=== PATIENT | female | born 1980 | race Caucasian/White ===

== ENCOUNTER 2017-11-17 15:46 | Emergency (ER) | END 2017-11-17 17:51 | disposition home or self-care (01) ==

== ENCOUNTER 2018-04-21 11:41 | Emergency (ER) | payer OTHER ==
[~2018-04-21] VITALS: Ht 167.6 cm; Wt 95.9 kg
[~2018-04-21 11:41] MED LIST: ALBU18HF INHALATION; DENIES; PRED20TA PO
[2018-04-21 11:54] VITALS: Ht 167.6 cm; Wt 95.9 kg
--- NOTE | 2018-04-21 15:35 | ERD ---
ER Documentation Chief Complaint Chief Complaint Complains of rash to face x 2 days HPI 37-year-old female, previously healthy, presents the emergency department, complaining of acute onset of left facial vesicular rash, associated with a burning sensation and deep pain. The patient reports history of chic kenpox in infancy. She denies fevers, no shortness of breath, no cough. No medications taken at this time for pain. ROS All systems reviewed and are negative except as per history of present illness. Medications Home Meds Active Scripts Hydrocodone/Acetaminophen ([place] 5-325 Tablet) 1 Each Tablet, 1 TAB PO QHS PRN for PAIN, #7 TAB Prov:JESUS TALBERT MD 04/21/18 Prednisone* (Prednisone*) 20 Mg Tab, 40 MG PO DAILY for 4 Days, TAB Prov:JESUS TALBERT MD 04/21/18 Valacyclovir HCl (Valtrex) 1,000 Mg Tablet, 1000 MG PO TID for 7 Days, TAB Prov:JESUS TALBERT MD 04/21/18 Albuterol Sulfate* (Ventolin HFA*) 18 Gm Hfa.aer.ad, 2 PUFF INHALATION Q4H, #1 INHALER Prov:RAY DELUCA MD 11/17/17 Prednisone* (Prednisone*) 20 Mg Tab, 40 MG PO DAILY for 5 Days, TAB Prov:RAY DELUCA MD 11/17/17 Reported Medications [Denies] No Conflict Check 12/03/10 Allergies Allergies: Coded Allergies: No Known Drug Allergy (Verified Allergy, Unknown, 11/17/17) PMhx/Soc History of Surgery: Yes (TUBAL LIGATION) Anesthesia Reaction: No Hx Neurological Disorder: No Hx Respiratory Disorders: Yes (ASTHMA) Hx Cardiac Disorders: No Hx Psychiatric Problems: No Hx Miscellaneous Medical Probl: No Hx Alcohol Use: No Hx Substance Use: No Hx Tobacco Use: No Smoking Status: Never smoker FmHx Family History: No diabetes, No coronary disease Physical Exam Vitals Vital Signs Date Temp Pulse Resp B/P (MAP) Pulse Ox O2 O2 Flow FiO2 Time Delivery Rate 04/21/18 97.9 65 16 130/76 97 Room Air 15:51 (94) 04/21/18 98.0 87 20 131/76 97 11:54 (94) Physical Exam Const: No acute distress Head: Atraumatic Eyes: Normal Conjunctiva ENT: Normal External Ears, Nose and Mouth. Neck: Full range of motion. No meningismus. Resp: Clear to auscultation bilaterally Cardio: Regular rate and rhythm, no murmurs Abd: Soft, non tender, non distended. Normal bowel sounds Skin: Left facial erythematous, vesicular rash, in dermatomal distribution. No intraocular lesions no lesions in the auditory canal. Back: No midline or flank tenderness Ext: No cyanosis, or edema Neur: Awake and alert Psych: Normal Mood and Affect Procedures/MDM Differential diagnosis include but not limited to: Contact dermatitis, HSV infection, cellulitis, insect bite, scabies. impetigo. Physical examination and clinical presentation consistent most likely with ortiz gles. During the ED course the patient remained stable, no new complaints. Results and clinical impression discussed with patient who agrees with management. The patient is stable to be treated outpatient and will be discharged home with a Rx for valacyclovir, some side effects of prescribed medications (headache, rash, nausea, vomiting, diarrhea, drowsiness, habituation, bleeding, hypertension, interactions with other medications) were reviewed. The patient was instructed to follow up with the primary care provider in the next 48h. If symptoms persist, worsen or new symptoms develop, then patient should return to the ED immediately. Instructions explained and given directly by me to the patient with acknowledgment and demonstrated understanding. Disclaimer: Inadvertent spelling and grammatical errors are likely due to EHR/dictation software use and do not reflect on the overall quality of patient care. Also, please note that the electronic time recorded on this note does not necessarily reflect the actual time of the patient encounter. Departure Diagnosis: Primary Impression: Shingles Condition: Stable Additional Instructions: Muchas beatris por [facility] para amaya servicio. Esperamos que en amaya visita a la esperanza de emergencia amaya problema medico haya sido solucionado y que se sienta mucho mejor. Para estar seguros que amaya mejoria sigue en proceso, le pedimos el favor de hacer corby horacio de seguimiento medico con amaya doctor primario en los proximos 2-4 dow. Lleve con usted estos documentos y las medicinas recetadas. Si lanre sintomas empeoran, NO SE ESPERE, por favor regrese a esperanza de emergencia INMEDIATAMENTE. En angelica que usted no tenga un mdico de atencin primaria: Llame al mdico o clnica comunitaria de referencia que aparece abajo shereen las horas de consultorio para hacer corby horacio para que le vean. CLINICAS: [facility] [phone] [facility] [phone] [facility] [phone] [facility] [phone] [facility] [phone] [address] [facility]. [phone] JESUS MURILLO MD Apr 21, 2018 15:35
[2018-04-21] MEDS ORDERED: HYDR-4011 PO (15:37)
[2018-04-21] MEDS ORDERED: PRED20TA PO (15:37)
[2018-04-21] MEDS ORDERED: VALA10004 PO (15:37)
[2018-04-21 15:51] VITALS: BP 130/76; PULSE 65; RESP 16
== END 2018-04-21 15:52 | disposition home or self-care (01) ==
LOC: FTE 11:41
DX: B02.9 Zoster without complications (principal); J45.909 Unspecified asthma, uncomplicated
CPT/HCPCS: 99283

== ENCOUNTER 2018-06-02 09:12 | Emergency (ER) | payer OTHER ==
[~2018-06-02] VITALS: Ht 152.4 cm; Wt 91.9 kg
[~2018-06-02 09:12] MED LIST changes: +HYDR-4011 PO; +VALA10004 PO
[2018-06-02 09:13] VITALS: BP 127/70; PULSE 80; RESP 18; Ht 152.4 cm; Wt 91.9 kg
[2018-06-02] MEDS ORDERED: KETOROLAC 60 MG INJ IM STA (09:53)
[2018-06-02] MEDS ORDERED: IBUP-1542 PO (10:26)
[2018-06-02] MEDS ORDERED: PRED20TA PO (10:28)
--- NOTE | 2018-06-02 11:05 | ERD ---
ER Documentation Chief Complaint Chief Complaint C/O RIGHT ARM PAIN FROM ELBOW TO FINGERS FOR FEW MONTHS, WORSE NOW HPI History of Present Illness: 37-year-old female with no past medical history coming in today with complaint of right arm pain. Patient reports pain present for 2 to 3 months. Patient denies injury or trauma. Patient describes pain as burning with numbness feeling that is more present at night. Patient reports pain is worsened in the past 2 weeks. Patient denies any type of cervical or back injuries. At home pharmacological/nonpharmacological treatment for symptoms: Denies Denies social concerns; Denies recent foreign travel ROS All systems reviewed and are negative except as per history of present illness. Medications Home Meds Active Scripts Prednisone* (Prednisone*) 20 Mg Tab, 40 MG PO WITH FIRST MEAL DAY for arm pain for 4 Days, TAB Prov:MONIQUE GAUTHIER NP 06/02/18 Ibuprofen* (Motrin*) 600 Mg Tab, 600 MG PO Q6H PRN for PAIN AND OR ELEVATED TEMP, #30 TAB Prov:MONIQUE GAUTHIER NP 06/02/18 Hydrocodone/Acetaminophen ([place] 5-325 Tablet) 1 Each Tablet, 1 TAB PO QHS PRN for PAIN, #7 TAB Prov:JESUS TALBERT MD 04/21/18 Prednisone* (Prednisone*) 20 Mg Tab, 40 MG PO DAILY for 4 Days, TAB Prov:JESUS TALBERT MD 04/21/18 valACYclovir HCl (Valtrex) 1,000 Mg Tablet, 1000 MG PO TID for 7 Days, TAB Prov:EJSUS TALBERT MD 04/21/18 Albuterol Sulfate* (Ventolin HFA*) 18 Gm Hfa.aer.ad, 2 PUFF INHALATION Q4H, #1 INHALER Prov:RAY DELUCA MD 11/17/17 Prednisone* (Prednisone*) 20 Mg Tab, 40 MG PO DAILY for 5 Days, TAB Prov:RAY DELUCA MD 11/17/17 Reported Medications [Denies] No Conflict Check 12/03/10 Allergies Allergies: Coded Allergies: No Known Drug Allergy (Verified Allergy, Unknown, 11/17/17) PMhx/Soc History of Surgery: Yes (TUBAL LIGATION) Anesthesia Reaction: No Hx Neurological Disorder: No Hx Respiratory Disorders: Yes (ASTHMA) Hx Cardiac Disorders: No Hx Psychiatric Problems: No Hx Miscellaneous Medical Probl: Yes (Shingles) Hx Alcohol Use: No Hx Substance Use: No Hx Tobacco Use: No Smoking Status: Never smoker FmHx Family History: coronary disease; No diabetes Physical Exam Vitals Vital Signs Date Temp Pulse Resp B/P (MAP) Pulse Ox O2 O2 Flow FiO2 Time Delivery Rate 06/02/18 98.0 80 18 127/70 97 09:13 (89) Physical Exam Const: No acute distress Head: Atraumatic Eyes: Normal Conjunctiva ENT: Normal External Ears, Nose and Mouth. Neck: Full range of motion. No meningismus. Resp: Clear to auscultation bilaterally Cardio: Regular rate and rhythm, no murmurs Abd: Soft, non tender, non distended. Normal bowel sounds Skin: No petechiae or rashes Back: No midline or flank tenderness Ext: No cyanosis, or edema. 2+ radial pulse. Brachial pulses palpated. Neurovascularly intact distally. Cap refill 2. Neur: Awake and alert Psych: Normal Mood and Affect Results 24 hrs Laboratory Tests Test 06/02/18 10:07 POC Beta HCG, Qualitative NEGATIVE Current Medications Medications Dose Sig/Kendra Start Time Status Last (Trade) Ordered Route PRN Stop Time Admin Dose Reason Admin Ketorolac 60 mg ONCE STAT 06/02/18 DC 06/02/18 Tromethamine IM 09:53 10:16 (Toradol) 06/02/18 09:55 Procedures/MDM ED course includes a thorough examination and history. Medications: ketorolac Imaging: -- Labs: Urine Low suspicion for life-threatening medical emergency. Low suspicion for neurovascular medical emergency that compromises limb. Otherwise healthy patient presenting with constellation of symptoms likely representing right arm pain possibly nerve impingement as characterized by history, physical exam findings, lab findings. Urine negative No respiratory distress, otherwise relatively well appearing and nontoxic. Patient educated on diagnoses, prescriptions, follow-up care, return precautions. Strict return precautions given for worsening condition; questions answered discharge. Disposition for discharge with followup in 2 days with PCP/clinic. Departure Diagnosis: Primary Impression: Pain of right arm Condition: Stable Patient Instructions: Pain, Uncertain Cause (Acute) Referrals: COMMUNITY CLINICS YOU HAVE RECEIVED A MEDICAL SCREENING EXAM AND THE RESULTS INDICATE THAT YOU DO NOT HAVE A CONDITION THAT REQUIRES URGENT TREATMENT IN THE EMERGENCY DEPARTMENT. FURTHER EVALUATION AND TREATMENT OF YOUR CONDITION CAN WAIT UNTIL YOU ARE SEEN IN YOUR DOCTORS OFFICE WITHIN THE NEXT 1-2 DAYS. IT IS YOUR RESPONSIBILITY TO MAKE AN APPOINTMENT FOR FOLOW-UP CARE. IF YOU HAVE A PRIMARY DOCTOR --you should call your primary doctor and schedule an appointment IF YOU DO NOT HAVE A PRIMARY DOCTOR YOU CAN CALL OUR PHYSICIAN REFERRAL HOTLINE AT IF YOU CAN NOT AFFORD TO SEE A PHYSICIAN YOU CAN CHOSE FROM THE FOLLOWING [facility] [address] [facility] [address] [facility]. [facility] [address] [facility] [facility] [address] [facility] [address] [facility]. [facility] [address] [facility]. [facility] YOU HAVE RECEIVED A MEDICAL SCREENING EXAM AND THE RESULTS INDICATE THAT YOU DO NOT HAVE A CONDITION THAT REQUIRES URGENT TREATMENT IN THE EMERGENCY DEPARTMENT. FURTHER EVALUATION AND TREATMENT OF YOUR CONDITION CAN WAIT UNTIL YOU ARE SEEN IN YOUR DOCTORS OFFICE WITHIN THE NEXT 1-2 DAYS. IT IS YOUR RESPONSIBILITY TO MA KE AN APPOINTMENT FOR FOLOW-UP CARE. IF YOU HAVE A PRIMARY DOCTOR --you should call your primary doctor and schedule and appointment IF YOU DO NOT HAVE A PRIMARY DOCTOR YOU CAN CALL OUR PHYSICIAN REFERRAL HOTLINE AT . IF YOU CAN NOT AFFORD TO SEE A PHYSICIAN YOU CAN CHOSE FROM THE FOLLOWING [facility] INSTITUTIONS: [facility] [address] [place] [address] [facility] [address] [place] [address] [facility] [address] [place] [address] Additional Instructions: Thank you very much for allowing us to participate in your care. Your health and safety is our top priority at [facility]. It is important to read all discharge instructions and education provided in your discharge packet. Call your primary care doctor TOMORROW for an appointment during the next 2-4 days and bring all the information and medications prescribed. It is very important for you to follow with your primary care doctor for further evaluation and reassessment of condition. Have prescriptions filled and follow precisely the directions on the label. -Prednisone is a steroid, which decreases inflammation; uses medication every morning with breakfast to decrease inflammation associated with your arm and possible nerve impingement flareup -Ibuprofen is a anti-inflammatory/pain medication; take this medication daily as prescribed for the next week to help with swelling/inflammation/pain. If the symptoms get worse and your provider is unavailable, return to the Emergency Department immediately. MONIQUE GAUTHIER NP Jun 02, 2018 11:05
== END 2018-06-02 11:04 | disposition home or self-care (01) ==
LOC: FTE 09:12
DX: M79.601 Pain in right arm (principal); J45.909 Unspecified asthma, uncomplicated
CPT/HCPCS: 81025; 96372; J1885; Z7502

== ENCOUNTER 2018-08-19 18:17 | Emergency (ER) | payer OTHER ==
[~2018-08-19] VITALS: Ht 157.5 cm; Wt 93.5 kg
[~2018-08-19 18:17] MED LIST changes: +IBUP-1542 PO
[2018-08-19 18:32] VITALS: Ht 157.5 cm; Wt 93.5 kg
[2018-08-19] MEDS ORDERED: HYDROCODONE/APAP (5/325) TAB PO ONE (21:30)
[2018-08-19] MEDS ORDERED: IBUPROFEN 600 MG TAB PO ONE (21:30)
[2018-08-19] MEDS ORDERED: IBUP800T48 PO (22:03)
[2018-08-19] MEDS ORDERED: TRAM50TA2 PO (22:03)
--- NOTE | 2018-08-19 22:05 | ERD ---
ER Documentation Chief Complaint Chief Complaint BACK PAIN/INJURY S/P FALL. NO KO OR HEAD TRAUMA. HPI This 38-year-old female slipped down 8 stairs on her buttocks 8 days ago. She has persistent pain in her coccyx. She also has mild pain in her right rib. She denies head injury, fever, loss of consciousness, neck pain, weakness or deficits patient has any redness of the area of pain. ROS All systems reviewed and are negative except as per history of present illness. Medications Home Meds Active Scripts Tramadol HCl (Tramadol HCl) 50 Mg Tablet, 50 MG PO Q4 PRN for PAIN, #20 TAB Prov:CARLOS BYERS MD 08/19/18 Ibuprofen* (Motrin*) 800 Mg Tab, 800 MG PO Q6, #20 TAB Prov:CARLOS BYERS MD 08/19/18 Prednisone* (Prednisone*) 20 Mg Tab, 40 MG PO WITH FIRST MEAL DAY for arm pain for 4 Days, TAB Prov:MONIQUE GAUTHIER NP 06/02/18 Ibuprofen* (Motrin*) 600 Mg Tab, 600 MG PO Q6H PRN for PAIN AND OR ELEVATED TEMP, #30 TAB Prov:MONIQUE GAUTHIER NP 06/02/18 Hydrocodone/Acetaminophen ([place] 5-325 Tablet) 1 Each Tablet, 1 TAB PO QHS PRN for PAIN, #7 TAB Prov:JESUS TALBERT MD 04/21/18 Prednisone* (Prednisone*) 20 Mg Tab, 40 MG PO DAILY for 4 Days, TAB Prov:JESUS TALBERT MD 04/21/18 valACYclovir HCl (Valtrex) 1,000 Mg Tablet, 1000 MG PO TID for 7 Days, TAB Prov:JESUS TALBERT MD 04/21/18 Albuterol Sulfate* (Ventolin HFA*) 18 Gm Hfa.aer.ad, 2 PUFF INHALATION Q4H, #1 INHALER Prov:RAY DELUCA MD 11/17/17 Prednisone* (Prednisone*) 20 Mg Tab, 40 MG PO DAILY for 5 Days, TAB Prov:RAY DELUCA MD 11/17/17 Reported Medications [Denies] No Conflict Check 12/03/10 Allergies Allergies: Coded Allergies: No Known Drug Allergy (Verified Allergy, Unknown, 11/17/17) PMhx/Soc History of Surgery: Yes (TUBAL LIGATION) Anesthesia Reaction: No Hx Neurological Disorder: No Hx Respiratory Disorders: Yes (ASTHMA) Hx Cardiac Disorders: No Hx Psychiatric Problems: No Hx Miscellaneous Medical Probl: Yes (Shingles) Hx Alcohol Use: No Hx Substance Use: No Hx Tobacco Use: No FmHx Family History: No diabetes, No coronary disease, No other Physical Exam Vitals Vital Signs Date Temp Pulse Resp B/P (MAP) Pulse Ox O2 O2 Flow FiO2 Time Delivery Rate 08/19/18 98.6 74 20 133/59 95 18:32 (83) Physical Exam Const: No acute distress Head: Atraumatic Eyes: Normal Conjunctiva ENT: Normal External Ears, Nose and Mouth. Neck: Full range of motion. No meningismus. Resp: Clear to auscultation bilaterally. Minimal tenderness right lateral rib area approximately T10 without crepitance, skin changes. Cardio: Regular rate and rhythm, no murmurs Abd: Soft, non tender, non distended. Normal bowel sounds Skin: No petechiae or rashes Back: No midline or flank tenderness. Tenderness of the coccyx. No erythema or induration or fluctuance. Ext: No cyanosis, or edema Neur: Awake and alert Psych: Normal Mood and Affect Results 24 hrs Laboratory Tests Test 08/19/18 21:30 POC Beta HCG, Qualitative NEGATIVE Current Medications Medications Dose Sig/Kendra Start Time Status Last (Trade) Ordered Route PRN Stop Time Admin Dose Reason Admin Ibuprofen 600 mg ONCE ONCE 08/19/18 DC 08/19/18 (Motrin) PO 21:30 08/19/18 21:30 21:31 1 tab ONCE ONCE 08/19/18 DC 08/19/18 Acetaminophen PO 21:30 08/19/18 21:30 / 21:31 Hydrocodone Bitart ([place] (5/325)) Procedures/MDM Chest X-ray 1V Interpreted by me: Soft Tissue: No acute abnormalities Bones: No acute abnormalities Mediastinum/Cardiac Silhouette/Lungs: No acute abnormalities. [id number] 1 view chest x-ray AP lateral sacrum and coccyx shows no appreciated fracture, dislocation. Impression-no acute findings in sacrum and coccyx. Been Motrin and [place]. Patient presents with signs and symptoms were appears to be his sacral or coccyx contusion and right rib contusion without findings to suggest obvious fracture, hemothorax, pneumothorax, infection, deficits. She will be discharged home with a short course of tramadol, ibuprofen, further observation at home, return precautions for new or worsening symptoms. The santana ent was stable with no new complaints during the ER course. Clinically, there is no current evidence to suggest meningitis, sepsis, acute abdomen, pneumonia, stroke, acute coronary syndrome, pulmonary embolism, aortic dissection or any other emergent condition appearing to require further evaluation or hospitalization. Patient counseled regarding my diagnostic impression and care plan. Prior to discharge all questions answered. Pt agrees with treatment plan and understands strict return precautions. Pt is instructed to follow up with primary care provider within 24-48 hours. Precautionary instructions provided including instructions to return to the ER if not improving or for any worsening or changing symptoms or concerns. Disclaimer: Inadvertent spelling and grammatical errors are likely due to EHR/dictation software use and do not reflect on the overall quality of patient care. Also, please note that the electronic time recorded on this note does not necessarily reflect the actual time of the patient encounter. Departure Diagnosis: Primary Impression: Sprain of coccyx Encounter type: initial encounter Qualified Codes: S33.8XXA - Sprain of other parts of lumbar spine and pelvis, initial encounter Condition: Stable Patient Instructions: Contusion, Coccyx/Sacrum Additional Instructions: No fracture appreciated on x-rays. Possible fracture not seen on x-ray but usually no treatment except for pain. Recheck for new worsening symptoms with primary care doctor. CARLOS BYERS MD Aug 19, 2018 22:05
--- NOTE | 2018-08-19 23:30 | EN ---
Date/Time of Note Date/Time of Note DATE: 08/19/18 TIME: 23:28 ER Progress Note Sign out from Dr. BYERS. Sacrum and coccyx x-rays pending. Radiology results: Read by radiologist. IMPRESSION: No acute fracture or dislocation. Unremarkable examination. RPTAT: HBST .Rich Steiner MD, MD Date Time Electronically viewed and signed by .Rich Steiner MD, on 08/19/2018 23:17 PRESCRIPTIONS FOR HOME: Previously written by Dr. BYERS. DISPOSITION: DISCHARGE At this time, patient is stable for discharge and outpatient management. I have instructed the patient to follow-up with his/her primary care physician in 1-2 days. I have discussed with the patient the possibility of needing to see a specialist for further workup and imaging studies if symptoms persist. I have instructed the patient to promptly return to the ER for any new or worsening symptoms including increased pain, fever, nausea, vomiting, weakness or LOC. The patient and/or family expressed understanding of and agreement with this plan. All questions were answered. Home care instructions were provided. DISCLAIMER: Inadvertent spelling and grammatical errors are likely due to EHR/dictation software use and do not reflect on the overall quality of patient care. Also, please note that the electronic time recorded on this note does not necessarily reflect the actual time of the patient encounter. MONIQUE GAUTHIER NP Aug 19, 2018 23:30
[2018-08-19 23:49] VITALS: BP 98/67; PULSE 61; RESP 18
== END 2018-08-19 23:50 | disposition home or self-care (01) ==
LOC: FTE 18:17
DX: S33.8XXA Sprain of other parts of lumbar spine and pelvis, initial encounter (principal); J45.909 Unspecified asthma, uncomplicated; W10.9XXA Fall (on) (from) unspecified stairs and steps, initial encounter; Y92.9 Unspecified place or not applicable
CPT/HCPCS: 71045; 72220; 81025; Z7610

== ENCOUNTER 2018-10-14 15:09 | Emergency (ER) | payer OTHER ==
[~2018-10-14] VITALS: Ht 152.4 cm; Wt 92.4 kg
[~2018-10-14 15:09] MED LIST changes: +FAMO-96 PO; +IBUP800T48 PO; +ONDA4TAB14 PO; +TRAM50TA2 PO
[2018-10-14 15:46] VITALS: Ht 152.4 cm; Wt 92.4 kg
[2018-10-14] MEDS ORDERED: KETOROLAC 30 MG INJ IM STA (17:32)
[2018-10-14] MEDS ORDERED: LIDOCAINE/MYLANTA 40 ML BTL PO STA (17:32)
[2018-10-14] MEDS ORDERED: FAMOTIDINE 20 MG TAB PO STA (17:32)
[2018-10-14] MEDS ORDERED: ONDANSETRON (ODT) 4 MG TAB ODT STA (17:32)
[2018-10-14 21:00] VITALS: BP 114/67; PULSE 76; RESP 20
== END 2018-10-14 21:00 | disposition home or self-care (01) ==
LOC: FTE 15:09
DX: R10.2 Pelvic and perineal pain (principal)
CPT/HCPCS: 76856; 80053; 81003; 81025; 83690; 85025; J1885; Z7610; 36415; 96372